=== PATIENT | male | born 1995 | race Caucasian/White ===

== ENCOUNTER 2018-03-21 19:50 | Emergency (ER) | payer OTHER ==
[~2018-03-21] VITALS: Ht 188 cm; Wt 79.4 kg
[2018-03-21 20:00] VITALS: BP 120/69
[2018-03-21] MEDS ORDERED: HYDROcodone/APAP 5/325MG 1 TAB TABLET PO ONE (20:45)
[2018-03-21] MEDS ORDERED: tiZANidine 4 MG TABLET. PO ONE (20:45)
--- NOTE | 2018-03-21 20:53 | PHYS DOC ---
Past Medical History Past Medical History: No Pertinent History Past Surgical History: No Surgical History Alcohol Use: Occasionally Drug Use: None Adult General Chief Complaint Chief Complaint: SHOULDER INJURY HPI HPI Patient is a 22 year old male who presents with the gym working out when he was lifting weights and felt a pop in his right neck and the pain now radiates down to the right shoulder and down to the mid back. Patient states is worse with movement. He rates pain 8 out of 10 and states he took ibuprofen about an hour and half before arrival. Patient states the pain is sharp and shooting. Review of Systems Review of Systems Constitutional: Denies fever or chills [] Eyes: Denies change in visual acuity, redness, or eye pain [] HENT: Denies nasal congestion or sore throat [] Respiratory: Denies cough or shortness of breath [] Cardiovascular: No additional information not addressed in HPI [] GI: Denies abdominal pain, nausea, vomiting, bloody stools or diarrhea [] : Denies dysuria or hematuria [] Musculoskeletal: Upper back pain or joint pain [] Integument: Denies rash or skin lesions [] Neurologic: Denies headache, focal weakness or sensory changes [] All other systems were reviewed and found to be within normal limits, except as documented in this note. Current Medications Current Medications Current Medications Medications (Trade) Dose Ordered Sig/[facility] Start Time Stop Time Status Last Admin Dose Admin Acetaminophen/ Hydrocodone Bitart (Lortab 5/325) 1 tab 1X ONCE 03/21/18 20:45 03/21/18 20:46 DC 03/21/18 20:30 1 TAB Tizanidine HCl (Zanaflex) 4 mg 1X ONCE 03/21/18 20:45 03/21/18 20:46 DC 03/21/18 20:30 4 MG Allergies Allergies Allergies Coded Allergies Type Severity Reaction Last Updated Verified No Known Drug Allergies 03/21/18 No Physical Exam Physical Exam Constitutional: Well developed, well nourished, no acute distress, non-toxic appearance. [] HENT: Normocephalic, atraumatic, bilateral external ears normal, oropharynx moist, no oral exudates, nose normal. [] Eyes: PERRLA, EOMI, conjunctiva normal, no discharge. [] Neck: Normal range of motion, no tenderness, supple, no stridor. [] Cardiovascular:Heart rate regular rhythm, no murmur [] Lungs & Thorax: Bilateral breath sounds clear to auscultation [] Abdomen: Bowel sounds normal, soft, no tenderness, no masses, no pulsatile masses. [] Skin: Warm, dry, no erythema, no rash. [] Back: No tenderness, no CVA tenderness. [] Extremities: No tenderness, no cyanosis, no clubbing, ROM intact, no edema. [] Neurologic: Alert and oriented X 3, normal motor function, normal sensory function, no focal deficits noted. [] Psychologic: Affect normal, judgement normal, mood normal. [] Current Patient Data Vital Signs Vital Signs Date Time Temp Pulse Resp B/P (MAP) Pulse Ox O2 Delivery O2 Flow Rate FiO2 03/21/18 20:30 16 99 Room Air 03/21/18 20:00 98.0 110 120/69 (86) 98.0 EKG EKG [] Radiology/Procedures Radiology/Procedures [] Impressions: [facility] [address] [place], [place] [id number] IMAGING REPORT Signed PATIENT: ZABRINA CESPEDES ACCOUNT: [id number] : 1995 LOCATION: ER AGE: 22 SEX: M EXAM STATUS: REG ER ORD. PHYSICIAN: KIM FROST APRN REASON: pain PROCEDURE: CT CERVICAL SPINE WO CONTRAST CT cervical spine without contrast. HISTORY: Pain CT scan cervical spine was done without contrast. C-spine is in normal alignment. A fracture is not identified. A focal disc protrusion is not evident. Thyroid is homogeneous. Cervical lymph nodes are generous in size. C-spine is in normal alignment. Disc spaces are normal in height. There is minimal spurring at C5-6 and mild bulging of the disc. IMPRESSION: 1. Minimal spurring and disc bulging at C5-6. 2. No fracture or other acute osseous abnormality noted in the cervical spine. 3. Cervical lymph nodes are generous in size. Electronically signed by: Rico Choudhary MD (03/21/2018 9:28 PM) [facility] PQRS Compliance Statement: One or more of the following individualized dose reduction techniques were utilized for this examination: 1. Automated exposure control 2. Adjustment of the mA and/or kV according to patient size 3. Use of iterative reconstruction technique DICTATED and SIGNED BY: RICO CHOUDHARY MD DATE: 03/21/182122 Course & Med Decision Making Course & Med Decision Making Patient is a 22 year old male who presents with the gym working out when he was lifting weights and felt a pop in his right neck and the pain now radiates down to the right shoulder and down to the mid back. Patient states is worse with movement. He rates pain 8 out of 10 and states he took ibuprofen about an hour and half before arrival. Patient states the pain is sharp and shooting. Alert And oriented. Walks with a steady gait. Range of motion is intact in all joints of his body. range Motion of the patient's neck is intact. Patient denies dizziness or hitting his head or nausea or vomiting. There is no tenderness with palpation. There is no spinal bony tenderness.. Patient has no focal weaknesses. Patient denies any numbness or tingling. CT cervical spine shows1. Minimal spurring and disc bulging at C5-6. 2. No fracture or other acute osseous abnormality noted in the cervical spine. 3. Cervical lymph nodes are generous in size. Patient is given a muscle relaxer and pain pill in the ED. Patient will get a prescription for muscle relaxer and pain medication to go home on. Patient should also use a heating pad. Dragon Disclaimer Dragon Disclaimer This electronic medical record was generated, in whole or in part, using a voice recognition dictation system. Departure Departure Impression: Primary Impression: Sprain of cervical neck Disposition: HOME, SELF-CARE Condition: STABLE Referrals: UNKNOWN PCP NAME (PCP) Patient Instructions: Cervical Sprain Additional Instructions: FOLLOW UP WITH PRIMARY CARE. TRY USING ICE OR HEAT FOR PAIN. TAKE MEDICATIONS PRESCRIBED. NO HEAVY LIFTING FOR A WEEK. Scripts Ibuprofen (IBUPROFEN) 600 Mg Tablet 600 MG PO PRN Q6HRS PRN for INFLAMMATION, #20 TAB Prov: KIM FROST [employer]ONEC[employer]TER [employer]PRENTICE [employer] 03/21/18 Hydrocodone/Apap 5-325 (NORCO 5-325 TABLET) 1 Each Tablet 1 TAB PO PRN Q6HRS PRN for PAIN, #10 TAB 0 Refills Prov: KIM FROST [employer] 03/21/18 Orphenadrine Citrate (ORPHENADRINE CITRATE) 100 Mg Tablet.er 1 TAB PO BID, #20 TAB Prov: KIM FROST [employer] 03/21/18 Problem Qualifiers Primary Impression: Sprain of cervical neck Encounter type: initial encounter Qualified Codes: S13.9XXA - Sprain of joints and ligaments of unspecified parts of neck, initial encounter KIM FROST [employer] Mar 21, 2018 20:53
--- NOTE | 2018-03-21 21:32 | RAD ---
CT cervical spine without contrast. HISTORY: Pain CT scan cervical spine was done without contrast. C-spine is in normal alignment. A fracture is not identified. A focal disc protrusion is not evident. Thyroid is homogeneous. Cervical lymph nodes are generous in size. C-spine is in normal alignment. Disc spaces are normal in height. There is minimal spurring at C5-6 and mild bulging of the disc. IMPRESSION: 1. Minimal spurring and disc bulging at C5-6. 2. No fracture or other acute osseous abnormality noted in the cervical spine. 3. Cervical lymph nodes are generous in size. Electronically signed by: Rico Wood MD (03/21/2018 9:28 PM) [facility] PQRS Compliance Statement: One or more of the following individualized dose reduction techniques were utilized for this examination: 1. Automated exposure control 2. Adjustment of the mA and/or kV according to patient size 3. Use of iterative reconstruction technique
[2018-03-21] MEDS ORDERED: ORPH100T PO (21:39)
[2018-03-21] MEDS ORDERED: HYDR-3164 PO (21:39)
[2018-03-21] MEDS ORDERED: IBUP-1007 PO (21:39)
== END 2018-03-21 21:44 | disposition home or self-care (01) ==
LOC: ER 19:50
DX: S13.8XXA Sprain of joints and ligaments of other parts of neck, initial encounter (principal); M54.6 Pain in thoracic spine; M25.511 Pain in right shoulder; X50.0XXA Overexertion from strenuous movement or load, initial encounter; Y93.89 Activity, other specified; Y92.89 Other specified places as the place of occurrence of the external cause; Y99.8 Other external cause status
CPT/HCPCS: 72125; 99284-25